=== PATIENT | male | born 2000 | race African-American/Black ===

== ENCOUNTER 2019-05-31 10:42 | Inpatient (IN) ==
[2019-05-31] MEDS ORDERED: ASPIRIN PO ONE (10:53)
[2019-05-31 11:04] LABS: BASO# 0.01 X1000 (0.0-0.2); BASO% 0.2 % (0.0-0.8); EOS# 0.14 X1000 (0.0-0.7); EOS% 2.4 % (0.0-10.0); HEMATOCRIT 43.4 % (42.0-52.0); HEMOGLOBIN 14.5 g/dL (14.0-18.0); LYMPH# 1.74 X1000 (1.2-3.4); LYMPH% 29.7 % (20.5-51.1); MCH 27.9 PG (27-31); MCHC 33.4 g/dL (33-37); MCV 83.5 FL (81-99); MONO# 0.68 X1000 (0.11-0.59); MONO% 11.6 % (1.7-9.3); MPV 9.7 FL (7.4-10.4); NEUT# 3.28 X1000 (1.4-6.5); NEUT% 56.1 % (42.2-75.2); PLT 280 X1000 (130-400); WBC 5.85 X1000 (4.8-10.8)
[2019-05-31 11:10] LABS: INR 1.01; PROTIME 13.4 Seconds (11.0-16.0)
[2019-05-31] MEDS ORDERED: TORADOL IM ONE (11:10)
--- NOTE | 2019-05-31 11:10 | PROVIDER DOCUMENTATION ---
HPI-Chest Pain - General Chief Complaint: Chest Pain Stated Complaint: NAUSEA/CHEST PAIN Time Seen by Provider: 05/31/19 11:00 Source: patient Allergies/Adverse Reactions: Patient Allergies Allergy/AdvReac Type Severity Reaction Status Date / Time No Known Allergies Allergy Verified 05/31/19 11:22 Home Medications: Home Medication List Medication Instructions Recorded Confirmed Last Taken Type NK [No Home Medications] 05/31/19 05/31/19 Unknown History - History of Present Illness-CP Nature of Presenting Problem: 18yom presents to ED c/o pain to left chest beneath left axilla that is worse with deep breaths/movement/coughing since this AM. He denies fever/chills/vomiting/diaphoresis/SOB. Location: reports: other (left chest) Chest Pain Radiation: reports: no radiation Quality of Pain: reports: aching, dull Onset/Duration: gradual, 4-6 hours ago Timing: still present Context/Activities at Onset: reports: none Modifying Factors: improves with: coughing, movement, other (deep inspiration) Associated Symptoms: reports: nausea. denies: abdominal pain, back pain, fever/chills, vomiting Nitro Today/Relief: no nitro taken today Aspirin Treatment Today: no aspirin today Prior Chest Pain/Cardiac Workup: reports: no prior chest pain, no prior cardiac workup Similar Symptoms Previously?: No Recently Seen Here or By Another Healthcare Provider: No Review of Systems - Adult - REVIEW OF SYSTEMS - ADULT Constitutional: reports: no symptoms reported Eyes: reports: no symptoms reported Ears, Nose, Mouth & Throat: reports: no symptoms reported Cardiovascular: reports: see HPI, chest pain (left) Respiratory: reports: no symptoms reported Gastrointestinal: reports: see HPI, nausea Genitourinary: reports: no symptoms reported Musculoskeletal: reports: no symptoms reported Integumentary: reports: no symptoms reported Neurological: reports: no symptoms reported Psychiatric: reports: no symptoms reported Endocrine: reports: no symptoms reported Hematologic/Lymphatic: reports: no symptoms reported Allergic/Immunologic: reports: no symptoms reported All Other Systems: Reviewed and Negative Past History - Adult - PAST MEDICAL HISTORY-ADULT Review of Records: reports: Old Records Reviewed, Nursing Assessment Review, Medications Reviewed, Social history reviewed & non-contributory. - SOCIAL HISTORY Smoking: non-smoker Living Situation: family Physical Exam-General - PHYSICAL EXAM-ADULT Initial Vital Signs Reviewed: Yes - CONSTITUTIONAL General Appearance: appears well, alert, no apparent distress - EYES Eyes: PERRL/EOMI, pink conjunctivae - HEAD, EARS, NOSE, MOUTH & THROAT HENMT: normocephalic/atraumatic, moist mucous membranes, normal ENT inspection, TMs normal, pharynx normal - NECK Neck: non-tender, full range of motion, supple, normal inspection - RESPIRATORY Respiratory: chest non-tender, lungs clear, normal breath sounds - CARDIOVASCULAR Cardiovascular: normal peripheral pulses, regular rate, rhythm, no edema, no gallop, no JVD, other ((+) Left anterior chest wall tenderness with palpation and deep inspiration) - GASTROINTESTINAL (ABDOMEN) Abdominal Exam: normal bowel sounds, non tender, soft, no organomegaly - LYMPHATIC Lymphatic: no adenopathy - MUSCULOSKELETAL Back Exam: normal inspection, no CVA tenderness, no vertebral tenderness Extremity: normal range of motion, non-tender, normal gait, normal inspection - SKIN Integumentary: normal color, normal turgor, warm/dry - NEUROLOGIC Neurologic: machine veneer repairer II-XII nml as tested, grossly normal, no motor/sensory deficits - PSYCHIATRIC Psych/Mental Status: normal mood/affect, normal thought content, normal thought process, oriented x 3 Progress - PLAN OF CARE/RESULTS Progress/Plan/Lab Results: Vital Signs - 8 hr 05/31/19 12:01 05/31/19 12:15 05/31/19 12:30 Pulse Rate 52 L 48 L 47 L Respiratory Rate 10 L 16 Blood Pressure 133/79 125/68 O2 Sat by Pulse Oximetry 97 98 100 05/31/19 12:31 05/31/19 12:32 05/31/19 12:41 Pulse Rate 48 L 54 L Respiratory Rate Blood Pressure 120/58 O2 Sat by Pulse Oximetry 100 100 100 05/31/19 12:44 05/31/19 12:45 05/31/19 12:46 Pulse Rate 52 L 59 L 45 L Respiratory Rate Blood Pressure 102/57 98/58 O2 Sat by Pulse Oximetry 100 100 100 05/31/19 12:48 05/31/19 12:50 05/31/19 12:52 Pulse Rate 53 L 58 L 59 L Respiratory Rate Blood Pressure 104/55 98/64 117/50 O2 Sat by Pulse Oximetry 100 100 100 05/31/19 12:54 05/31/19 12:56 05/31/19 12:58 Pulse Rate 64 53 L 56 L Respiratory Rate Blood Pressure 108/40 95/49 102/50 O2 Sat by Pulse Oximetry 100 100 100 05/31/19 13:00 05/31/19 13:01 05/31/19 13:05 Pulse Rate 90 86 99 H Respiratory Rate Blood Pressure 122/78 165/96 O2 Sat by Pulse Oximetry 100 100 100 05/31/19 13:10 05/31/19 13:13 05/31/19 13:15 Pulse Rate 66 64 52 L Respiratory Rate Blood Pressure 108/75 114/38 O2 Sat by Pulse Oximetry 100 100 100 05/31/19 13:16 05/31/19 13:18 05/31/19 13:20 Pulse Rate 58 L 50 L 55 L Respiratory Rate Blood Pressure 127/57 116/62 119/69 O2 Sat by Pulse Oximetry 100 100 100 05/31/19 13:22 05/31/19 13:24 05/31/19 13:26 Pulse Rate 49 L 46 L 50 L Respiratory Rate Blood Pressure 123/81 127/83 137/73 O2 Sat by Pulse Oximetry 100 100 100 05/31/19 13:28 05/31/19 13:30 05/31/19 13:31 Pulse Rate 48 L 47 L 51 L Respiratory Rate Blood Pressure 139/74 125/78 O2 Sat by Pulse Oximetry 100 100 100 05/31/19 13:32 05/31/19 13:34 05/31/19 13:36 Pulse Rate 50 L 52 L 49 L Respiratory Rate Blood Pressure 135/83 127/75 114/77 O2 Sat by Pulse Oximetry 100 100 100 05/31/19 13:38 05/31/19 13:40 05/31/19 13:42 Pulse Rate 52 L 55 L 58 L Respiratory Rate Blood Pressure 112/81 128/82 120/81 O2 Sat by Pulse Oximetry 100 100 100 05/31/19 13:44 05/31/19 13:45 05/31/19 13:46 Pulse Rate 51 L 51 L 53 L Respiratory Rate Blood Pressure 124/83 121/85 O2 Sat by Pulse Oximetry 100 100 100 05/31/19 13:48 05/31/19 13:50 05/31/19 13:52 Pulse Rate 53 L 50 L 49 L Respiratory Rate Blood Pressure 128/83 139/86 130/80 O2 Sat by Pulse Oximetry 100 100 100 05/31/19 13:54 05/31/19 13:56 05/31/19 13:58 Pulse Rate 54 L 59 L 48 L Respiratory Rate Blood Pressure 123/81 125/81 126/81 O2 Sat by Pulse Oximetry 100 100 100 05/31/19 14:00 05/31/19 14:01 05/31/19 14:02 Pulse Rate 52 L 53 L 50 L Respiratory Rate Blood Pressure 128/85 121/83 O2 Sat by Pulse Oximetry 100 100 100 05/31/19 14:04 05/31/19 14:06 05/31/19 14:08 Pulse Rate 49 L 49 L 53 L Respiratory Rate Blood Pressure 127/75 121/75 120/75 O2 Sat by Pulse Oximetry 100 100 100 05/31/19 14:09 05/31/19 14:10 05/31/19 14:12 Pulse Rate 49 L 48 L 47 L Respiratory Rate Blood Pressure 126/74 126/73 O2 Sat by Pulse Oximetry 100 100 100 05/31/19 14:14 05/31/19 14:16 05/31/19 14:17 Pulse Rate 49 L 52 L 50 L Respiratory Rate Blood Pressure 101/80 131/82 O2 Sat by Pulse Oximetry 100 100 100 05/31/19 14:18 05/31/19 14:20 05/31/19 14:22 Pulse Rate 52 L 50 L 53 L Respiratory Rate Blood Pressure 117/73 127/87 121/78 O2 Sat by Pulse Oximetry 100 100 100 05/31/19 14:24 05/31/19 14:26 05/31/19 14:28 Pulse Rate 46 L 48 L 54 L Respiratory Rate Blood Pressure 124/77 130/85 121/80 O2 Sat by Pulse Oximetry 100 100 100 05/31/19 14:30 05/31/19 14:32 05/31/19 14:34 Pulse Rate 54 L 48 L 46 L Respiratory Rate Blood Pressure 133/71 123/80 126/73 O2 Sat by Pulse Oximetry 100 100 100 05/31/19 14:36 05/31/19 14:38 05/31/19 14:40 Pulse Rate 51 L 57 L 51 L Respiratory Rate Blood Pressure 120/71 118/78 137/80 O2 Sat by Pulse Oximetry 100 100 100 Laboratory Results - last 24 hr 05/31/19 05/31/19 05/31/19 10:50 10:50 10:50 WBC 5.85 RBC 5.20 Hgb 14.5 Hct 43.4 MCV 83.5 MCH 27.9 MCHC 33.4 RDW Std Deviation 14.0 Plt Count 280 MPV 9.7 Immature Gran % (Auto) 0.0 Neut % (Auto) 56.1 Lymph % (Auto) 29.7 Turner % (Auto) 11.6 H Eos % (Auto) 2.4 Baso % (Auto) 0.2 Immature Gran # (Auto) 0.00 Neut # (Auto) 3.28 Lymph # (Auto) 1.74 Turner # (Auto) 0.68 H Eos # (Auto) 0.14 Baso # (Auto) 0.01 PT INR PTT (Actin FS) Sodium 142 Potassium 4.1 Chloride 104 Carbon Dioxide 22 L Anion Gap 16 BUN 16 Creatinine 1.1 Estimated GFR/1.73 m2 > 60 BUN/Creatinine Ratio 15 Glucose 102 Calculated Osmolality 285 Calcium 10.1 Total Bilirubin 0.51 AST 20 ALT 11 Alkaline Phosphatase 61 Creatine Kinase 353 H Creatine Kinase Index 0.7 CK-MB (CK-2) 2.64 Troponin T Zoi-[id number]-Vkufejnkixb Pept 11 Total Protein 7.7 Albumin 4.9 Globulin 2.8 Albumin/Globulin Ratio 1.8 05/31/19 05/31/19 10:50 10:50 WBC RBC Hgb Hct MCV MCH MCHC RDW Std Deviation Plt Count MPV Immature Gran % (Auto) Neut % (Auto) Lymph % (Auto) Turner % (Auto) Eos % (Auto) Baso % (Auto) Immature Gran # (Auto) Neut # (Auto) Lymph # (Auto) Turner # (Auto) Eos # (Auto) Baso # (Auto) PT 13.4 INR 1.01 PTT (Actin FS) 35.4 Sodium Potassium Chloride Carbon Dioxide Anion Gap BUN Creatinine Estimated GFR/1.73 m2 BUN/Creatinine Ratio Glucose Calculated Osmolality Calcium Total Bilirubin AST ALT Alkaline Phosphatase Creatine Kinase Creatine Kinase Index CK-MB (CK-2) Troponin T < 0.010 Wmj-V-Tmbjvxtmabn Pept Total Protein Albumin Globulin Albumin/Globulin Ratio Orders Category Date Time Status Admit - [facility] Routine AdmDCTranf 05/31/19 14:30 Active Activity - Up with Assistance ORDERED Care 05/31/19 14:30 Active Cardiac Monitoring DIRECTED Care 05/31/19 10:53 Active Consent for Test/Procedure DIRECTED Care 05/31/19 11:22 Active Intake and Output-Strict ORDERED Care 05/31/19 14:30 Active Misc. NRSG Communication Order DIRECTED Care 05/31/19 11:45 Active Saline Loc NOW Care 05/31/19 10:53 Active Update & Confirm Home Medicati ROUTINE Care 05/31/19 13:39 Active Vital Signs Order Q 8-HR ASSESS Care 05/31/19 14:30 Completed Z-Document. for Tele Applied ORDERED Care 05/31/19 14:32 Completed Regular Diet Diet 05/31/19 14:31 Active CHEST-2 VIEWS [RAD] Routine Exams 06/01/19 06:00 Ordered CHEST-2 VIEWS [RAD] Stat Exams 05/31/19 10:53 Completed CHEST-PORTABLE [RAD] Stat Exams 05/31/19 13:15 Completed CBC WITH ELECTRONIC DIFF [HEME] Stat Lab 05/31/19 10:50 Completed CK PROFILE [SP CHEM] Stat Lab 05/31/19 10:50 Completed COMPREHENSIVE METABOLIC PANEL [CHEM] Stat Lab 05/31/19 10:50 Completed PRO B-NATRIURETIC PEPTIDE Stat Lab 05/31/19 10:50 Completed PROTIME WITH INR [COAG] Stat Lab 05/31/19 10:50 Completed PTT [COAG] Stat Lab 05/31/19 10:50 Completed TROPONIN T Stat Lab 05/31/19 10:50 Completed 0.9% Sodium Chloride Inj [Ns] 1,000 ml Med 05/31/19 12:24 Discontinued .ROUTE As directed 0.9% Sodium Chloride Inj [Ns] 1,000 ml Med 05/31/19 12:31 Active IV 125 mls/hr Aspirin Med 05/31/19 10:53 Discontinued 325 mg PO NOW ONE Etomidate [Amidate] Med 05/31/19 13:14 Discontinued 20 mg IV NOW ONE Etomidate [Amidate] Med 05/31/19 11:23 Discontinued 20 mg MISC NOW ONE Hydrocodone/APAP 10 mg/325 mg [[place]-10] Med 05/31/19 13:14 Discontinued 1 each PO NOW ONE Hydrocodone/APAP 5 mg/325 mg [[place]-5] Med 05/31/19 14:32 Active 1 each PO Q4H PRN PRN Ketorolac [Toradol] Med 05/31/19 11:10 Discontinued 30 mg IM NOW ONE Lidocaine 1%/Epi 1:100,000 [Xylocaine 1%/Epi 1:100,000] Med 05/31/19 11:23 Discontinued 30 ml INJ NOW ONE Lorazepam [Ativan] Med 05/31/19 12:06 Discontinued 0.5 mg IV NOW ONE Morphine Med 05/31/19 13:05 Discontinued 4 mg .ROUTE .STK-MED ONE Morphine Med 05/31/19 11:23 Discontinued 4 mg IV NOW ONE Morphine Med 05/31/19 13:14 Discontinued 4 mg IV NOW ONE Ondansetron Odt [Zofran Odt] Med 05/31/19 13:14 Discontinued 4 mg PO NOW ONE Ondansetron [Zofran] Med 05/31/19 11:23 Discontinued 4 mg IV NOW ONE Ondansetron [Zofran] Med 05/31/19 13:14 Discontinued 4 mg IV NOW ONE CP/SOB/Palp >45 yrs of Age Stat Oth 05/31/19 10:53 Ordered Chest Tube Tray Stat Oth 05/31/19 11:24 Active Oxygen Device Stat Oth 05/31/19 11:46 Completed Telemetry [OM.EQ] Routine Oth 05/31/19 14:30 Active EKG [EKG] Stat Ther 05/31/19 10:53 Draft Transfer/Admit Order [TRANSFER] Routine Transfer 05/31/19 13:38 Completed Result Diagrams: 05/31/19 10:50 05/31/19 10:50 - REASSESSMENT Reassessment #1 Time Reassessed: 11:40 (Dr. Mariee received CXR results and is placing a chest tube for pneumothorax.) Reassessment #2 Time Reassessed: 13:31 Status: improving (Better after CT placement. I was present the entire time Dr. Long was doing chest tube placement. Patient tolerated procedure well, does not remember insertion, no complications.) - EKG 1 Time of EKG reading by physician:: 11:13 EKG Read and Signed by:: Harrison Mariee EKG Interpretation (*Must complete 3 of following elements*): Normal Rate: 67 Rhythm: NSR [place]: normal QRS: normal [place] Interval: normal ST Wave: normal Prior EKG Comparison: no prior EKG - XRAY 1 XRAY Study: Chest Impression: See EMR Report ( CHEST-2 VIEWS - 05/31/2019 INDICATION: Chest pain COMPARISON: None FINDINGS: There is a small left apical pneumothorax. This measures about 17 mm, probably about 20%. No infiltrates. Heart size and pulmonary vascularity is normal. IMPRESSION: Small left apical pneumothorax. This report was discussed with Dr. Mariee on 05/31/2019 at 11:18 AM and was readback. Electronically signed by Emery Gillespie 05/31/2019 11:19 AM 05/31/19 1119 Interpreting Physician: Emery Gillespie MD Dictated Date/Time: 05/31/19 1113 cc: Harrison Mariee MD; None,PCP) 2 XRAY Study: Chest Impression: Normal, See EMR Report Comparison with other Films: changes noted (Chest tube in good placement, lung re-expanded) - CONSULTS/PCP/HOSPITALIST Notification #1 *Consult/PCP/Hospitalist*: CLAIRE Vela Time Discussed: 13:33 Consult Disposition: Will see in ED Procedures - CHEST TUBE Left Lateral Chest Consent Form Signed?: Yes Time-Out Verification Completed?: Yes Size of Welsh Tube (cm): 28 Site Prepped: Betadine Anesthetic: 2%, Lidocaine w/ Epinephrine Volume of Anesthesia (ml's): 20 Ayala of Air [place]: Yes Number of Attempts: 1 Connected to Wall Suction?: Yes Tube Drainage: see nurses notes Tube Sutured to Skin: Yes (2-0 silk) Placement Verified by XRAY?: Yes Procedure Comment: Chest tube insertion performed by Dr. Long supervised by Dr. Carlos Enrique Mariee - PROCEDURAL SEDATION Procedure, Risk, Benefits and Alternatives discussed with:: Patient Consent Form Signed?: Yes Sedation type:: moderate Indications:: Chest tube insertion Last meal time?: 07:00 Prior complications to general anesthesia?: No Prior complications to procedural sedation?: No ASA Classification Score: P1. Normal healthy patient. Airway Physical Exam: normal anatomy Mallampati Classification Score:: Cls 1. Soft palate, ant/post tonsillar pillars, and uvula visible. Plan explained to:: patient Preparation: consent signed Sedation: etomidate (25 mg Titrated) Reversal: none Complications during/after procedure?: none Intra-service time:: 30 minutes or less Departure - Departure Date of Disposition Decision: 05/31/19 Time of Disposition Decision: 13:34 DIAGNOSIS: Pneumothorax, left, Marijuana use, Tobacco use disorder Disposition: ADMITTED INPATIENT 09 Certified Medical Emergency: Emergent Condition: Stable - Critical Care Note This patient required my direct & personal management of CC.: No Attestation - Physician/ ALDO Attestation Advanced Practice Provider:: Dilma William The physician spent face to face time with patient:: Yes Advanced Practice Provider documentation review:: Supervising physician onsite and consulted in the evaluation and care of this patient. The physician did have a face to face encounter with the patient.
[2019-05-31 11:11] LABS: PTT 35.4 Seconds (22.3-41.8)
--- NOTE | 2019-05-31 11:21 | Diag Imaging Result Doc PS360 ---
CHEST-2 VIEWS - 05/31/2019 INDICATION: Chest pain COMPARISON: None FINDINGS: There is a small left apical pneumothorax. This measures about 17 mm, probably about 20%. No infiltrates. Heart size and pulmonary vascularity is normal. IMPRESSION: Small left apical pneumothorax. This report was discussed with Dr. Mariee on 05/31/2019 at 11:18 AM and was readback. Electronically signed by Emery Gillespie 05/31/2019 11:19 AM
[2019-05-31] MEDS ORDERED: MORPHINE IV ONE ×2 (11:23→13:14)
[2019-05-31] MEDS ORDERED: XYLOCAINE 1%/EPI 1:100,000 INJ ONE (11:23)
[2019-05-31] MEDS ORDERED: AMIDATE MISC ONE (11:23)
[2019-05-31] MEDS ORDERED: ZOFRAN IV ONE ×2 (11:23→13:14)
[2019-05-31 11:39] LABS: AGAP 16; ALB/GLOB RATIO 1.8; ALBUMIN 4.9 g/dL (3.5-5.0); ALKALINE PHOSPHATASE 61 U/L (32-122); BUN 16 mg/dL (8-22); CALCIUM 10.1 mg/dL (8.8-10.2); CHLORIDE 104 mmol/L (98-107); CK PROFILE 353 U/L (24-204); COSMO 285; CREATININE 1.1 mg/dL (0.7-1.2); ESTIMATED GFR > 60; GLUCOSE 102 mg/dL (70-104); GOT 20 U/L (10-34); GPT 11 U/L (10-44); POTASSIUM 4.1 mmol/L (3.5-5.1); SODIUM 142 mmol/L (136-145); TCO2 22 mmol/L (25-35); TOTAL BILIRUBIN 0.51 mg/dL (0.20-1.00); TOTAL PROTEIN 7.7 g/dL (6.3-8.3)
--- NOTE | 2019-05-31 12:05 | ED EKG INTERP ---
This chart was entered by Stacia Mackay Scribe, acting as scribe for Harrison Mariee MD. EKG Interpretation - EKG Time of EKG reading by physician:: 10:47 EKG Read and Signed by:: Harrison Mariee EKG Interpretation (*Must complete 3 of following elements*): Normal Rate: 67 Rhythm: normal sinus rhythm [place]: normal QRS: normal [place] Interval: normal ST Wave: normal Comments: normal ECG Attestation - Physician/ ALDO Attestation Patient care was provided by Advanced Practice Provider:: Yes Advanced Practice Provider:: Dilma William Advanced Practice Provider documentation review:: The Mid-level provider documentation, treatment plan and medical decision making was reviewed by the physician who agrees with all treatment and medical decision making by the MLP. The physician spent face to face time with patient:: Yes Advanced Practice Provider documentation review:: Supervising physician onsite and consulted in the evaluation and care of this patient. The physician did have a face to face encounter with the patient. This chart was documented by the indicated scribe, (Stacia Mackay Scribe) and accurately reflects the services I performed and decisions made by Jaylene martin Kent A., MD, as attested by the provider's signature.
[2019-05-31] MEDS ORDERED: ATIVAN IV ONE (12:06)
[2019-05-31 12:17] LABS: CK INDEX 0.7 (0.0-2.5); CK-MB 2.64 ng/mL (0.0-5.0)
[2019-05-31] MEDS ORDERED: NS 1,000 ML ONE (12:24)
[2019-05-31] MEDS ORDERED: NS 1,000 ML IV ONE (12:31)
[2019-05-31] MEDS ORDERED: MORPHINE ONE (13:05)
[2019-05-31] MEDS ORDERED: AMIDATE IV ONE (13:14)
[2019-05-31] MEDS ORDERED: ZOFRAN ODT PO ONE (13:14)
[2019-05-31] MEDS ORDERED: NORCO-10 PO ONE (13:14)
--- NOTE | 2019-05-31 13:42 | EKG Report ---
Test Performed on : 05/31/2019 10:47:40 AM Test Reason : CP Blood Pressure : / mmHG Vent. Rate : 067 BPM Atrial Rate : 067 BPM P-R Int : 128 ms QRS Dur : 078 ms QT Int : 410 ms P-R-T Axes : 069 045 038 degrees QTc Int : 433 ms Normal sinus rhythm. Normal ECG When compared with ECG of 08-MAR-2016 19:20, Nonspecific T wave abnormality, improved in Anterolateral leads Unconfirmed Result
--- NOTE | 2019-05-31 13:50 | Diag Imaging Result Doc PS360 ---
EXAM: CHEST-PORTABLE 05/31/2019 HISTORY: chest tube placement TECHNIQUE: AP portable at 1329 COMMENT: There is a chest tube in the left hemithorax. The pneumothorax which was demonstrated 1110 has been evacuated. The heart size and primary vascularity are within normal limits. IMPRESSION: No residual pneumothorax. Electronically signed by Dc So 05/31/2019 1:47 PM
--- NOTE | 2019-05-31 14:12 | HISTORY AND PHYSICAL ---
CHIEF COMPLAINT: Left-sided axillary and chest pain. HISTORY OF PRESENT ILLNESS: This is a 18-year-old gentleman with a history of bipolar disorder with psychotic features and anger issues. He presented to the emergency room complaining of pain to his left chest just beneath his left axillary area that started as a sudden onset last night. He stated that it increases with any movement, deep breaths or coughing. It does relieve somewhat while sitting still and breathing shallow although it remains constant. He has had some nausea. He denied any vomiting, any palpitations, any injury. PAST MEDICAL HISTORY: 1. Bipolar disorder type 2 with psychotic features. 2. MDD. 3. Anger and agitation issues. PAST SURGICAL HISTORY: Denies. SOCIAL HISTORY: He smokes 1 to 2 packs of cigarettes a day. He uses marijuana. He denies any alcohol use. ALLERGIES: No known drug allergies. HOME MEDICATIONS: A list will be obtained by the nursing staff and once verified will review restart as appropriate. REVIEW OF SYSTEMS: Discussed patient with pertinent positives stated in the HPI. He denied any syncope or dizziness, any palpitations, any recent weight loss or weight gain, any fevers or chills, a productive cough, any recent injury, any vomiting, diarrhea, constipation, black or bloody vomitus or stools, hematuria, dysuria, frequency, urgency. PHYSICAL EXAMINATION: GENERAL: This is a 18-year-old gentleman who is sitting up on the stretcher asleep after having etomidate for chest tube placement in no distress. VITAL SIGNS: Blood pressure is 101/76 with a heart rate of 60, respirations are 16, temperature is 97.6 degrees oral with room air saturations 96-98%. HEENT: Pupils are equal, round, react to light. Sclerae are anicteric. Head is normocephalic, atraumatic. Mucous membranes are moist. NECK: Supple with trachea midline. CARDIOVASCULAR: Regular rate and rhythm. S1 and S2 are appreciated. He has no lower extremity edema. Calves are nontender. Peripheral pulses are palpable x4 extremities. PULMONARY: Breath sounds are clear with no increased work of breathing noted. Chest tube is noted to left lateral chest with dressing dry and intact. Chest does rise and fall symmetric with respiration. GASTROINTESTINAL: Abdomen soft, nondistended with bowel sounds in all 4 quadrants. NEUROLOGIC: He is sedated at present. SKIN: Warm and dry. LABS: WBC is 5.8 with hemoglobin 14.5, hematocrit 43.4, platelets of 280,000. Sodium 142, potassium 4.1, BUN 16, creatinine 1.1 with glucose of 102. CPK is 353. Chest x-ray revealed a small left apical pneumothorax about 20% with no infiltrates. EKG, sinus rhythm at a rate of 67. ASSESSMENT AND PLAN: 1. Left apical pneumothorax status post 28-Estonian chest tube inserted. 2. Marijuana use and abuse. 3. Tobacco use and abuse. 4. History of bipolar 2 with psychotic features. PLAN: The patient will be admitted to the medical floor. He will be placed on telemetry for close monitoring. We will consult General Surgery for chest tube following, repeat a chest x-ray in the morning. Further treatments pending hospital course. Plan was discussed with Dr Munroe. Dictated by CLAIRE Deleon for Clay Munroe MD cc: CLAIRE Deleon MD [facility]
[2019-05-31] MEDS: NORCO-5 PO PRN ×3 (15:46→23:19)
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
[2019-05-31 20:44] LABS: UR AMPHETAMINES QUAL NONE DETECTED (NONE DETECT); UR BARBITUATES QUAL NONE DETECTED (NONE DETECT); UR BENZODIAZEPIN QUAL NONE DETECTED (NONE DETECT); UR CANNABINOIDS QUAL PRESUMPTIVE POSITIVE (NONE DETECT); UR COCAINE QUAL NONE DETECTED (NONE DETECT); UR METHADONE QUAL NONE DETECTED (NONE DETECT); UR OPIATES QUAL PRESUMPTIVE POSITIVE (NONE DETECT); UR OXYCODONE QUAL NONE DETECTED (NONE DETECT); UR PCP QUAL NONE DETECTED (NONE DETECT)
[2019-06-01 06:48] LABS: BASO# 0.01 X1000 (0.0-0.2); BASO% 0.2 % (0.0-0.8); EOS# 0.21 X1000 (0.0-0.7); EOS% 3.4 % (0.0-10.0); HEMATOCRIT 42.1 % (42.0-52.0); LYMPH# 1.74 X1000 (1.2-3.4); LYMPH% 28.1 % (20.5-51.1); MCH 28.5 PG (27-31); MCHC 33.3 g/dL (33-37); MCV 85.7 FL (81-99); MONO% 16.1 % (1.7-9.3); MPV 9.7 FL (7.4-10.4); NEUT# 3.24 X1000 (1.4-6.5); NEUT% 52.2 % (42.2-75.2); PLT 250 X1000 (130-400); RBC 4.91 XMIL (4.7-6.1); RDW 14.2 % (11.5-14.5)
[2019-06-01 07:07] LABS: AGAP 11; BUN 12 mg/dL (8-22); CALCIUM 8.8 mg/dL (8.8-10.2); CHLORIDE 102 mmol/L (98-107); COSMO 277; ESTIMATED GFR > 60; GLUCOSE 94 mg/dL (70-104); POTASSIUM 4.2 mmol/L (3.5-5.1); SODIUM 139 mmol/L (136-145); TCO2 26 mmol/L (25-35)
[2019-06-01 07:36] LABS: FREE T4 1.4 ng/dL (0.93-1.70); TSH 1.52 uIUmL (0.27-4.20)
--- NOTE | 2019-06-01 09:00 | Diag Imaging Result Doc PS360 ---
EXAM: CHEST-2 VIEWS 06/01/2019 HISTORY: pneumothorax, CT left TECHNIQUE: Two views the chest COMMENT: There is a chest tube on the left. There is no evidence of pneumothorax. There is some soft tissue emphysema in the lower lateral chest wall. The heart size and pulmonary vascularity are within normal limits. IMPRESSION: No evidence of pneumothorax. Electronically signed by Dc So 06/01/2019 8:57 AM
[2019-06-01] MEDS: NORCO-5 PO PRN ×4 (09:46→22:00)
--- NOTE | 2019-06-01 13:36 | PROGRESS NOTE ---
DATE: 06/01/2019 SUBJECTIVE: This morning, Mr. Boles refers to be doing okay. Still has some chest pains, especially taking a deep breath hurts. He had a chest tube placed in yesterday. OBJECTIVE: Vital signs: Blood pressure is 119/50, pulse of 50, respirations 16, temperature 97.8 degrees. General: Mr. Boles is a 18-year-old gentleman. He is in bed, no distress. HEENT: Mucosa is pink and moist. Anicteric. Acyanotic. Neck: Supple. Chest: Good air entry bilateral. There is a chest tube in the left hemithorax. Cardiovascular: Regular rate and rhythm. Abdomen: Soft. Extremities: No pedal edema. SQUARE DANCE CALLER: Patient is awake, alert, and oriented. LABORATORY DATA: Has been reviewed. CBC is completely normal. Chemistry is also completely normal. Patient's folate is 5.2, which is slightly low. His chest x-ray this morning showed no evidence of pneumothorax. ASSESSMENT: 1. Spontaneous left-sided pneumothorax of unclear etiology. The patient is status post chest tube placement. Subsequent chest x-rays are unremarkable. 2. Tobacco use and abuse. 3. Folate deficiency, will be replaced. 4. History of major depressive disorder per psych documentation in 2016 associated with bipolar disorder. cc: David Graves MD
[2019-06-02] MEDS: NORCO-5 PO PRN ×5 (03:05→23:05)
--- NOTE | 2019-06-02 08:08 | Diag Imaging Result Doc PS360 ---
EXAM: CHEST-PORTABLE INDICATION: dyspnea TECHNIQUE: One view COMPARISON: 06/01/2019 FINDINGS: The left chest tube is in stable position. No pneumothorax is appreciated. The mild soft tissue emphysema at the lower lateral chest wall on the left has largely resolved. No new consolidation is identified. Cardiac silhouette is stable. IMPRESSION: Essential resolution of the mild subcutaneous emphysema seen previously. Stable chest, otherwise. Electronically signed by Jose Scott 06/02/2019 8:05 AM
[2019-06-02] MEDS: FOLIC ACID PO SCH (09:54)
--- NOTE | 2019-06-02 11:57 | PROGRESS NOTE ---
DATE: 06/02/2019 SUBJECTIVE: This morning, Mr. Boles refers to be doing well. Still has some pain in the left hemithorax, but for the most part, he refers to be doing okay. We are still waiting on Surgery evaluation today. OBJECTIVE: Vital Signs: Blood pressure is 110/47, pulse of 57, respirations 19, temperature 98.3 degrees. General: Mr. Boles is a 18-year-old gentleman. He is in bed. No distress. HEENT: Mucosa is pink and moist. Anicteric. Acyanotic. Neck: Supple. Chest: Good air entry bilaterally. Slightly reduced in the left posterior lung james. Cardiovascular: Regular rate and rhythm. GI: Abdomen is soft, nontender. Bowel sounds present. Extremities: No pedal edema. SENIOR WRITER: The patient is awake, alert, and oriented. There is no focal neurological deficit. LABORATORY DATA: None for today. The patient's folate level was 5.2 yesterday. ASSESSMENT: 1. Spontaneous left-sided pneumothorax of unclear etiology. The patient is status post chest tube placement. Subsequent chest x-rays have been unremarkable. We are waiting on surgery to evaluate him for further recommendations. I think Mr. Boles's chest tube can potentially be removed today. 2. Tobacco use and abuse. 3. Folate deficiency. Will continue with replacement. 4. History of major depressive disorder and bipolar disorder per Psychiatric documentation in 2016. The patient does not follow up with any psychiatrist. In general, I think Mr. Boles is doing fairly okay. His x-ray this morning shows essential resolution of the mild subcutaneous emphysema. The chest shows no pneumothorax is appreciated. I think his chest tube can be removed today. We are going to be waiting on Surgery evaluation, and then go from there. cc: David Graves MD
[2019-06-03] MEDS: NORCO-5 PO PRN ×4 (03:03→20:13)
--- NOTE | 2019-06-03 03:53 | GENERAL SURGERY CONSULTATION ---
DATE: 06/02/2019 CHIEF COMPLAINT: Left chest pain, shortness of breath. REASON FOR CONSULTATION: Spontaneous pneumothorax and chest tube management. HISTORY OF PRESENT ILLNESS: This is a 18-year-old gentleman who was admitted through the ER on 05/31/2019. He had a chest tube placed for spontaneous pneumothorax on the left. He denied any trauma. He says that 24 hours prior he developed worsening shortness of breath that prompted his presentation. He is admitted to the Hospitalist Service and I was consulted today for chest tube management. The chest tube has been water-sealed by Dr. Graves as clinically he seems to be improving. Chest tube output has been minimal. MEDICAL HISTORY: Negative. SURGICAL HISTORY: Negative. SOCIAL HISTORY: He does smoke. Denies illicits but his UDS was positive for opiates and cannabinoids. FAMILY HISTORY: Reviewed and negative for cancer. REVIRW OF SYSTEMS: A 10-point reciew of system was performed and, negative other than what was mentioned in the HPI. PHYSICAL EXAMINATION: Vital Signs: Afebrile. Pulse 59, blood pressure 107/52, oxygen saturation is 99% on room air. General: He is alert, in no acute distress. HEENT: No scleral icterus. No cervical mass. Cardiovascular: Normal rate. Pulmonary: Left-sided chest tube with no air leak, minimal output to water seal. Dressing is clean. Abdomen: Soft, nontender, nondistended. Integument: Warm, dry. Psychiatric: Somewhat anxious appearing. Neurologic: No gross deficits. Lymphatic: No cervical adenopathy. LABORATORY DATA: I reviewed his labs. IMAGING: I reviewed his imaging. ASSESSMENT AND PLAN: This is a 18-year-old with spontaneous left pneumothorax. He had a chest tube placed by the ER. I have been consulted for tube management. His lungs on this morning's x- ray expanded. We will keep his tube to water seal tonight. If it remains expanded tomorrow we will remove the tube. I discussed smoking cessation with the patient. cc: Cash Warren MD
--- NOTE | 2019-06-03 07:19 | Diag Imaging Result Doc PS360 ---
EXAM: CHEST-1 VIEW 06/03/2019 HISTORY: pneumothorax TECHNIQUE: AP portable at 0610 COMMENT: There is a left chest tube. The left pneumothorax has recurred and is now over 2.7 cm in thickness at the apex. There is slight shift of the midline to the right. IMPRESSION: Recurrent left pneumothorax. This may be under tension. The findings were discussed with Shade Warren MD at 06/03/2019 7:17 AM. Electronically signed by Dc So 06/03/2019 7:17 AM
[2019-06-03] MEDS: FOLIC ACID PO SCH (08:08)
--- NOTE | 2019-06-03 12:26 | Diag Imaging Result Doc PS360 ---
EXAM: CT THORAX W/O CONTRAST 06/03/2019 HISTORY: pnuemothorax TECHNIQUE: This exam was performed using automated exposure control, adjustment of mA or kV according to patient size, and/or use of iterative reconstruction technique. COMMENT: There are no previous CT examinations available for comparison. There continues to be a left pneumothorax. The chest tube is located medially against the medial, mediastinal pleura. There is a pleural fluid collection posteriorly. There is minimal atelectatic change in the posterior costophrenic sulcus of the right lower lobe and somewhat more in the left lower lobe dependently. Otherwise the right lung is clear. There is no evidence of mediastinal adenopathy. No definite acute abnormalities are seen in the visualized portion of the abdomen. There is some soft tissue gas in the left chest wall which is probably due to the presence of the chest tube. The regional skeleton appears to be intact. IMPRESSION: Left hydropneumothorax. Electronically signed by Dc So 06/03/2019 12:24 PM
[2019-06-03] MEDS: MORPHINE IV PRN ×3 (12:57→22:05)
--- NOTE | 2019-06-03 14:34 | PROGRESS NOTE ---
DATE: 06/03/2019 SUBJECTIVE: This morning, Mr. Boles refers to be hurting. A chest x-ray which was done early on did show recurrent left pneumothorax. Surgery has ordered a CT scan and has also ordered to resume the chest tube under suction. OBJECTIVE: Current vital signs: Blood pressure is 107/53, pulse of 57, respirations 20, temperature 98.4 degrees. The patient is saturating 99% on room air. General: Mr. Boles is a 18-year-old gentleman. He is in bed. He seems to be in mild painful distress. HEENT: Mucosa is pink and moist. Anicteric. Acyanotic. Neck: Supple. Chest: Air entry is reduced to the left anterior hemithorax. There are a few crackles posteriorly. Cardiovascular: Regular rate and rhythm. There are no murmurs, no rubs, no gallops. Gastrointestinal: Abdomen is soft, nontender. Extremities: No pedal edema. Central nervous system: Patient is awake, alert, and oriented. IMAGING STUDIES: Chest x-ray this morning shows recurrent left pneumothorax. It also says this may be under tension and it was discussed with Dr. Warren. A CT scan which was done this morning confirms the pneumothorax on the left side. ASSESSMENT: 1. Spontaneous left-sided pneumothorax of unclear etiology. The patient's tube was put under water seal early yesterday. A CT scan reveals a recurrence of the pneumothorax. A CT scan has been has been, we are pending official report. The chest tube has been put back under suction and we will follow further recommendations from Surgery. 2. Tobacco use and abuse. The patient has been counseled. 3. Folate deficiency. We will continue replacement. 4. History of major depressive disorder and bipolar disorder per Psychiatry documentation in 2016. The patient is clinically stable. DISPOSITION: For now, we are going to continue with chest tube under suction, control the pain and follow further recommendations from Surgery. cc: David Graves MD
--- NOTE | 2019-06-03 18:45 | GENERAL SURGERY PROGRESS NOTE ---
DATE: 06/03/2019 SUBJECTIVE: Continues to complain about the chest tube. No shortness of breath. OBJECTIVE: Vital signs: He is afebrile. Pulse 66, blood pressure 107/53, oxygen saturation 99% on room air. General: He is alert. Cardiovascular: Normal rate. Pulmonary: On room air. No acute distress. Left chest tube is placed back to -20 suction. There is no air leak. There is minimal output. I have reviewed his labs. White count 6 on the 12th. I reviewed his x-ray this morning. It shows increased pneumothorax on the left, possible mediastinal shift. ASSESSMENT AND PLAN: This is a 18-year-old gentleman with spontaneous pneumothorax. He did not tolerate water seal. I will place the tube back to suction. We will continue this for next couple days. He ultimately, I believe, will need a noncontrast CT scan to better define the lung. cc: Cash Warren MD
[2019-06-04] MEDS: NORCO-5 PO PRN ×3 (00:24→20:15)
[2019-06-04] MEDS: MORPHINE IV PRN ×4 (03:37→20:16)
[2019-06-04] MEDS: FOLIC ACID PO SCH (08:43)
--- NOTE | 2019-06-04 10:13 | Diag Imaging Result Doc PS360 ---
EXAM: CHEST-PORTABLE INDICATION: dyspnea TECHNIQUE: One view COMPARISON: 06/03/2019 FINDINGS: The left chest tube is in stable position. The moderate-sized left pneumothorax has not changed appreciably since the previous study. The lungs remain clear. No new consolidation is identified. The cardiomediastinal silhouette and central vasculature are grossly unremarkable. IMPRESSION: Stable moderate-sized left pneumothorax. Electronically signed by Jose Scott 06/04/2019 10:11 AM
[2019-06-04] MEDS ORDERED: XYLOCAINE-MPF 2% ONE (10:55)
[2019-06-04] MEDS ORDERED: DIPRIVAN 1% ONE (10:55)
[2019-06-04] MEDS ORDERED: XYLOCAINE 1%/EPI 1:100,000 ONE (11:01)
[2019-06-04] MEDS ORDERED: FENTANYL ONE (11:08)
[2019-06-04] MEDS ORDERED: KEFZOL 1 GM/D5W 1 GM/50 ML IVPB ONE (11:29)
[2019-06-04] MEDS ORDERED: VERSED ONE (11:44)
[2019-06-04] MEDS: DILAUDID ONE ×3 (12:30→15:34)
[2019-06-04] MEDS ORDERED: PHENERGAN ONE (12:38)
--- NOTE | 2019-06-04 12:42 | Diag Imaging Result Doc PS360 ---
CHEST-PORTABLE - 06/04/2019 INDICATION: CHEST TUBE PLACEMENT COMPARISON: 06/04/2019 FINDINGS: There is a left chest tube. The left pneumothorax has disappeared. The lungs are clear. Heart size is normal. IMPRESSION: Resolution of the left pneumothorax. Electronically signed by Emery Gillespie 06/04/2019 12:39 PM
[2019-06-04] MEDS: TORADOL ONE ×2 (13:04→15:35)
--- NOTE | 2019-06-04 16:07 | PROGRESS NOTE ---
DATE: 06/04/2019 Today Mr. Boles referred to be doing okay, he was actually in and out of sleep, he just came out of surgery. He had been sent for replacement of the chest tube because the previous one was not at the right position told by Dr. Warren. OBJECTIVE: His current vitals blood pressure is 117/62, pulse of 63, respiration is 18, temperature 98.2 degrees.General: Mr. Boles 18-year-old gentleman he is in bed, no distress. Mucosa is pink and moist. Anicteric. Acyanotic. Neck: Supple. Chest: Air entry is bilaterally reduced, more so to the left hemithorax. There is a chest tube in place. Cardiovascular: Regular rate and rhythm. No murmurs, no rubs, no gallops. Abdomen: Soft, nontender. Bowel sounds present. Extremities: No pedal edema. PATTERNATOR: Patient is awake, alert and oriented. There is no focal neurological deficit. LABORATORY DATA: None for today. A repeat chest x-ray this morning after the chest tube replacement shows resolution of the left pneumothorax. ASSESSMENT: 1. Spontaneous left side pneumothorax of unclear etiology. The patient is status post replacement of the previous chest tube. Subsequent chest x-ray shows complete resolution. 2. Tobacco use and abuse prior to hospitalization. Patient has been counseled. 3. Folate deficiency. Patient is on replacement. 4. History of major depressive disorder and bipolar disorder per Psychiatry documentation in 2005. The patient is clinically stable. Denies any symptoms at this point. So in general I think Mr. Boles is doing a lot better now. He has his chest tube replaced. I spoke directly with Dr. Warren this morning. He plans to keep the chest tube in for 24 to 48 hours under suction before putting it under water seal hopefully on Friday and go from there. cc: David Graves MD [facility] HAYES HOSPITALSandeep
--- NOTE | 2019-06-04 16:17 | EKG Report ---
Test Performed on : 06/04/2019 4:09:49 PM Test Reason : ST Elevation Blood Pressure : / mmHG Vent. Rate : 063 BPM Atrial Rate : 063 BPM P-R Int : 134 ms QRS Dur : 080 ms QT Int : 390 ms P-R-T Axes : 026 016 029 degrees QTc Int : 399 ms Normal sinus rhythm. Nonspecific ST and T wave abnormality Abnormal ECG When compared with ECG of 31-MAY-2019 10:47, (Unconfirmed) Nonspecific T wave abnormality, worse in Anterolateral leads V 5 and V6 slightly out of place due to chest bandages. KJ AGRONOMY TECHNICIAN Unconfirmed Result
--- NOTE | 2019-06-04 21:24 | OPERATIVE NOTE ---
PROCEDURE DATE: 06/04/2019 PREOPERATIVE DIAGNOSIS: Persistent spontaneous pneumothorax with malpositioned chest tube. POSTOPERATIVE DIAGNOSIS: Persistent spontaneous pneumothorax with malpositioned chest tube. PROCEDURE PERFORMED: Removal of previous chest tube and placement of a 32-Salvadorean left-sided chest tube. ANESTHESIA: MAC with local. INDICATION: A 18-year-old gentleman developed spontaneous pneumothorax. Chest tube was placed by the ER and was noted to be anteriorly oriented and not adequately draining the pneumothorax. OPERATIVE NOTE: Risks, benefits and alternatives were discussed patient who consented for the procedure, seen preoperatively and surgical site was marked. He was taken to the operating room and placed in supine position, and IV anesthesia was administered. His hand was secured above his head with silk tape, and his left chest was prepped with chlorhexidine solution after the previous chest tube was removed. We then planned our chest tube incision slightly proximally 2 rib spaces below the previous tube and slightly more posterior, and we carried this down through the subcutaneous tissue and muscle entering the chest cavity over the rib. A cohen of air was noted, and a 32-Salvadorean chest tube was placed posteriorly and apically. It titled well, placed a Pleur- evac and was secured with two 0 silk sutures. A dressing was applied as well as an occlusive dressing of the previous chest tube incision. He tolerated with no complication and minimal EBL. cc: Cash Warren MD
[2019-06-05] MEDS: NORCO-5 PO PRN ×5 (00:46→20:49)
[2019-06-05] MEDS: MORPHINE IV PRN ×6 (02:02→21:48)
--- NOTE | 2019-06-05 07:06 | Diag Imaging Result Doc PS360 ---
CHEST-PORTABLE - 06/05/2019 INDICATION: dyspnea COMPARISON: 06/04/2019 FINDINGS: Stable left chest tube in good position. No pneumothorax. No infiltrates. Heart size is normal. IMPRESSION: No acute disease. Electronically signed by Emery Gillespie 06/05/2019 7:04 AM
[2019-06-05] MEDS: FOLIC ACID PO SCH (08:40)
--- NOTE | 2019-06-05 10:10 | PROGRESS NOTE ---
DATE: 06/05/2019 Mr. Bakari Boles is a 18-year-old black male, has a left-sided chest tube for spontaneous pneumothorax per Dr. Warren. The chest x-ray today shows good placement of this chest tube, no ongoing pneumothorax, there does not appear to be an air leak. It was replaced yesterday and will maintain suction today, left chest tube. cc: Buffy Lott MD
[2019-06-05] MEDS: PERICOLACE PO SCH ×2 (13:57→20:49)
--- NOTE | 2019-06-05 14:06 | PROGRESS NOTE ---
DATE: 06/05/2019 SUBJECTIVE: Today, Mr. Boles refers to be hurting every now and then at the site of the chest tube and said whenever he takes in deep breaths it hurts a little. Otherwise, no other complaints. OBJECTIVE: Vital signs: His vitals, blood pressure is 119/55, pulse of 69, respiration is 20, temperature is 97.8. The patient is oxygenating 100% on 2 L of nasal cannula. General: On general exam, Mr. Boles is a 18-year-old -[place] gentleman. He is in bed. No distress. HEENT: Mucosa is pink and moist. Anicteric. Acyanotic. Neck: Supple. Chest: Good air entry bilateral. Chest tube is in the left hemithorax. Cardiovascular: Regular rate and rhythm. Abdomen: Soft, nontender. Bowel sounds present. Extremities: No pedal edema. PHOTO FINISHER: The patient is awake, alert, and oriented. LABORATORY DATA: None for today. The patient still has a chest tube in place, no air leak, still under suction. Chest x-ray this morning shows no acute disease, chest tube in place, no pneumothorax, no infiltrates. ASSESSMENT: 1. Spontaneous left side pneumothorax of unclear etiology. The patient is status post replacement of the chest tube. Subsequent chest x-ray this morning shows complete resolution and no acute disease. 2. Tobacco use and abuse prior to hospitalization. The patient is counseled. 3. Folate deficiency. The patient is on replacement. 4. History of major depressive disorder and bipolar disorder per Psychiatric documentation in 2005. The patient is clinically stable, denies any symptoms. So in general, I feel Mr. Boles is doing well. Chest tube is in good position. Has been evaluated by Surgery today. I think the plan is to put the tube under water-seal tomorrow and hopefully get it out by Friday and get him discharged. cc: David Graves MD
[2019-06-06] MEDS: NORCO-5 PO PRN ×6 (00:37→23:45)
[2019-06-06] MEDS: MORPHINE IV PRN ×5 (01:49→21:59)
--- NOTE | 2019-06-06 07:39 | Diag Imaging Result Doc PS360 ---
CHEST-PORTABLE - 06/06/2019 INDICATION: L chest tube. COMPARISON: 06/05/2019 FINDINGS: Stable left chest tube in good position. The lungs are clear. Heart size is normal. No pneumothorax or pleural effusion. IMPRESSION: No acute disease. Electronically signed by Emery Gillespie 06/06/2019 7:36 AM
[2019-06-06] MEDS: FOLIC ACID PO SCH (08:05)
[2019-06-06] MEDS: PERICOLACE PO SCH ×2 (08:05→22:02)
--- NOTE | 2019-06-06 09:48 | PROGRESS NOTE ---
DATE: 06/06/2019 OBJECTIVE: Mr. Boles refers to be doing fairly okay. No new complaints. Still some left chest discomfort. OBJECTIVE: Vital signs: Blood pressure is 115/58, pulse of 81, respirations 18, temperature 98 degrees. General: Mr. Boles is a 18-year-old gentleman. He is in bed, no distress. Mucosa is pink and moist. Anicteric. Acyanotic. Neck: Supple. Chest: Good air entry bilaterally. No crepitations. There is still a chest tube in the left hemithorax. Cardiovascular: Regular rate and rhythm. Abdomen: Soft, nontender. Bowel sounds present. Extremities: No pedal edema. BAG MACHINE SET UP OPERATOR: Patient is awake, alert, and oriented. LABORATORY DATA: None for today. A KUB this morning suggests stable left chest tube in good position. No pneumothorax. ASSESSMENT: 1. Spontaneous left-sided pneumothorax. Patient is status post chest tube placement. Today is day 2. Subsequent chest x-ray shows complete resolution and no new findings. Will be waiting on surgery recommendation to possibly put this under water seal today. 2. Tobacco use and abuse prior to hospitalization. Patient has been counseled. 3. Folate deficiency. We will continue to replace. 4. History of major depressive disorder and bipolar disorder per psychiatric documentation in 2005. The patient is clinically stable. No symptoms. cc: David Graves MD
--- NOTE | 2019-06-06 12:00 | PROGRESS NOTE ---
DATE: 06/06/2019 Bakari Boles is a 18-year-old black male who has a left-sided chest tube placed per Dr. Warren. The chest tube is in good place. A chest x-ray this morning showed no ongoing pneumothorax. He does not have a good cough, but there is no evidence of air leak on his chest tube, and will place his chest tube to water seal. cc: Buffy Lott MD
[2019-06-07] MEDS: MORPHINE IV PRN ×2 (05:31→10:17)
--- NOTE | 2019-06-07 07:21 | Diag Imaging Result Doc PS360 ---
EXAM: CHEST-PORTABLE 06/07/2019 HISTORY: L chest tube. TECHNIQUE: AP portable semiupright at 0613 COMMENT: There is a chest tube in the left hemithorax. There is a tiny residual apical pneumothorax measuring less than 5 mm at the apex. This has not changed significantly since 06/06/2019. IMPRESSION: Stable chest. Electronically signed by Dc So 06/07/2019 7:19 AM
[2019-06-07] MEDS: PERICOLACE PO SCH ×2 (10:11→21:12)
[2019-06-07] MEDS: FOLIC ACID PO SCH (10:11)
[2019-06-07] MEDS: NORCO-5 PO PRN ×3 (11:55→21:12)
--- NOTE | 2019-06-07 12:10 | PROGRESS NOTE ---
DATE: 06/07/2019 SUBJECTIVE: This morning, Mr. Boles refers to be doing okay. No new complaints. OBJECTIVE: Vital Signs: Blood pressure is 114/67, pulse of 61, respirations are 16, temperature is 98.4 degrees, patient is saturating 99% on room air. General Examination: Mr. Boles is a 18- year-old, -[place] Citizen gentleman. He is in bed. No distress. HEENT: Mucosa is pink and moist. Anicteric. Acyanotic. Neck: Supple. Chest: Good air entry bilaterally. There is still a chest tube in the left hemithorax. Abdomen: Soft, nontender. Bowel sounds present. Extremities: No pedal edema. PLATEN PRESS OPERATOR: The patient is awake, alert, and oriented. Laboratory Data: None for today. Patient's chest x-ray shows a residual apical pneumothorax measuring less than 5 mm at the apex. The patient's chest tube has been under water seal since yesterday. ASSESSMENT: 1. Spontaneous left-sided pneumothorax. Patient is status post chest tube placement. X-ray shows just a residual pneumothorax on the apex. The patient's chest tube is currently under water seal, it has been for the past 24 hours. We will wait for surgery to evaluate him today, hopefully to take the tube out, and then go from there. 2. Tobacco use and abuse prior to hospitalization. Patient has been counseled. 3. Folate deficiency. Patient is on replacement therapy. 4. History of major depressive disorder and bipolar disorder. Psychiatry documentation in 2005. The patient is currently stable. No psychiatric symptoms. PLAN: In general, Mr. Boles is doing a lot better. Came in because of acute onset of chest pain, shortness of breath. Was found to have a left pneumothorax on evaluation. ER put in the initial chest tube. The patient was observed for about 2 days. The chest tube was put under water seal. Unfortunately, pneumothorax reaccumulated. Surgery was consulted. The patient was seen by Dr. Warren. Chest tube replacement was done by Dr. Warren on 06/04/2019. After that, subsequent chest x-ray has shown remarkable improvement. The chest tube was put under water seal yesterday by Dr. Lott. A chest x-ray this morning showed a residual small pneumothorax on the apex. The patient is currently asymptomatic. We are waiting on surgery evaluation today to hopefully take the tube out and then we can get Mr. Boles home either later today or tomorrow morning. cc: David Graves MD
--- NOTE | 2019-06-07 21:45 | GENERAL SURGERY PROGRESS NOTE ---
DATE: 06/07/2019 SUBJECTIVE: Patient is doing well. OBJECTIVE: No fevers. No tachycardia. No increased work of breathing. His left chest tube is to water seal with no air leak, minimal output. I reviewed his labs and his chest x-ray. Chest x- ray shows near complete resolution of pneumothorax with good position of the tube and no effusion. ASSESSMENT AND PLAN: A 18-year-old gentleman with spontaneous pneumothorax. Plan to remove the tube in the morning and let him go home tomorrow if his post pull x-ray remains okay. Otherwise continue aggressive pulmonary toileting. I did not see any evidence of blebs on the CT scan. We did discuss prophylactic measures to prevent this from happening in the future. cc: Cash Warren MD
[2019-06-08] MEDS: NORCO-5 PO PRN (03:49)
--- NOTE | 2019-06-08 08:47 | Diag Imaging Result Doc PS360 ---
EXAM: CHEST-PORTABLE 06/08/2019 HISTORY: chest tube TECHNIQUE: AP portable at 0834 COMMENT: There is a left chest tube in place. There is still a small apical pneumothorax on the left measuring 5 mm in thickness. This is not significantly changed since 06/07/2019. Otherwise are has been no significant change. IMPRESSION: Stable left apical pneumothorax. Electronically signed by Dc So 06/08/2019 8:45 AM
[2019-06-08] MEDS: FOLIC ACID PO SCH (09:06)
[2019-06-08] MEDS: PERICOLACE PO SCH (09:06)
--- NOTE | 2019-06-08 11:13 | Diag Imaging Result Doc PS360 ---
EXAM: CHEST-PORTABLE 06/08/2019 HISTORY: post chest tube removal TECHNIQUE: AP portable upright at 1053 COMMENT: The left chest tube has been removed. The pneumothorax has increased considerably in size with some shift of the mediastinum to the right. It now measures 3.6 cm at the apex. IMPRESSION: Recurrent pneumothorax on the left which may be under tension. The findings were discussed with Shade Warren MD at 06/08/2019 11:10 AM. Electronically signed by Dc So 06/08/2019 11:10 AM
[2019-06-08 12:06] VITALS: BP 125/73
[2019-06-08] MEDS ORDERED: KLONOPIN PO PRN (12:39)
--- NOTE | 2019-06-08 14:27 | PROGRESS NOTE ---
DATE: 06/08/2019 SUBJECTIVE: The patient has no major complaints. He is desperate to go home. OBJECTIVE: Blood pressure is 125/73, heart rate 62, respiratory 16, temperature 97.5 degrees, 100% on room air.Cardiovascular: Regular rate and rhythm. Pulmonary: Bilateral breath sounds clear to auscultation. GI: Soft, nontender, nondistended. Bowel sounds are positive. LABORATORY DATA: I do not have any new data. Chest x-ray today this morning after chest tube removal showed a small left apical pneumothorax. The 5 hour 4 hour post film showed greatly increased pneumothorax. Plan is to get another x-ray at 15:00 and decide about his future course. DISPOSITION: 1. Left-sided pneumothorax. Chest tube has been removed. Clinically he looks well, but I am not entirely sure he is going to be able to be discharged today, but at the discretion of surgery. 2. Folate deficiency. We will continue. 3. Depression anxiety. He is not really on any medications. I am going to put in some anxiety medicine, maybe that will help. He is just worried about his job and not being able to work for the last 2 weeks, he has been in the hospital for over a week, so we will continue to follow. Potential discharge today. cc: Navdeep Norwood MD
--- NOTE | 2019-06-08 22:08 | GENERAL SURGERY PROGRESS NOTE ---
DATE: 06/08/2019 SUBJECTIVE: Feels okay. He is very adamant he wants to go home. He denies any shortness of breath. Has some discomfort in his tube, but overall has been about the same. OBJECTIVE: On exam, he is afebrile. There is no tachycardia. Blood pressures have been 120s over 70s. Oxygen saturation 100% on room air. He is alert. His left chest tube is in place. It is to water seal with no air leak and minimal output. His dressing is clean. I reviewed his labs. He has nothing new today. I have reviewed his x-ray. He has had a very tiny small apical pneumothorax noted over the last 24 to 48 hours with no change. No subcutaneous air. No effusion. ASSESSMENT AND PLAN: This is a 18-year-old gentleman with a spontaneous pneumothorax. He had initial chest tube in the ER that was removed, and then subsequently had a chest tube placed posteroapically. His pneumothorax seems to have resolved for the most part. I did not identify any blebs on his CT scan and he has had no air leak at all noted during his admission. As such, I removed his tube and placed an occlusive dressing. Unfortunately, his followup x-ray a couple hours later showed some increase in the pneumothorax. I will repeat an x-ray later this afternoon. I suspect that he may ultimately, if it does not show improvement with nonrebreather, require further intervention, possibly with pleurodesis. I will follow the patient closely. If it shows improvement, we may follow him as an outpatient with chest x-ray, but he is very adamant that he does not want to stay in the hospital, and we discussed this with him as well. We will continue to follow while he is here, but we will make further disposition pending findings of the afternoon x-ray. cc: Cash Warren MD
--- NOTE | 2019-06-09 14:35 | DISCHARGE SUMMARY ---
ADMISSION DATE: 05/31/2019 DISCHARGE DATE: 06/08/2019 Please note this is an AGAINST MEDICAL ADVICE discharge. ADMISSION DIAGNOSES: 1. Left apical pneumothorax, status post 28-Spanish chest tube insertion. 2. Marijuana use and abuse. 3. Tobacco use and abuse. 4. History of bipolar type 2 with psychotic features. DISCHARGE DIAGNOSES: 1. Left-sided pneumothorax with chest tube removal. 2. Folate deficiency. 3. Depression and anxiety. SUMMARY OF FINDINGS: This is a 18-year-old male who presented to the emergency room with complaints of pain in his left chest, beneath the left axilla that started as an sudden onset the night prior to arriving, worsened with increased movement, deep breaths, or cough, was found to have a left apical pneumothorax of 20% with no infiltrates. General Surgery was consulted, and a 28-Spanish chest tube was inserted. The chest tube was removed, and a post chest tube removal chest x-ray was done that showed an impression of a recurrent pneumothorax on the left, which may be under tension. The patient decided to leave AGAINST MEDICAL ADVICE, and did not wait on the followup x-ray that was to be done today at 3 p.m. to decide about the future course. The patient stated he was worried about his job, and that he had not been there and been able to work over the past 2 weeks, so he left AGAINST MEDICAL ADVICE. TIME SPENT: A 35-minute discharge. Dictated by CLAIRE Pollard for Navdeep Norwood MD cc: CLAIRE Pollard MD
== END 2019-06-08 14:59 | disposition left against medical advice (07) | DRG 201 ==
LOC: ED 10:42 → SUATTDRO 14:42 → 4N 14:42
PROVIDERS: ATTEND Internal Medicine